=== PATIENT | male | born 1985 | race Caucasian/White ===

== ENCOUNTER 2024-02-12 02:33 | Emergency (ER) | payer OTHER, SELFPAY ==
[2024-02-12 02:40] VITALS: BP 155/92
[2024-02-12 02:59] VITALS: BMI 45.4
--- NOTE | 2024-02-12 03:03 | ED.GENMED ---
History of Present Illness
General
Chief Complaint: Chest Pain
Source: patient
Exam Limitations: none
Time Seen by Provider: 02/12/24 02:54
History of Present Illness
History of Present Illness:
See MDM
Past History
Past History
ED Past Medical History: Other (Neuropathic pain)
ED Past Surgical History: Appendectomy and Tonsilectomy
Social History
Tobacco: Non-smoker
Alcohol: Occasional
Drug: None
Living: with family
Employment: Employed
Phy Exam
Physical Exam
Physical Exam:
See MDM
Scores
Heart Score for Chest Pain Patients
STEMI patient?: No
History: Slightly or Non-Suspicious
ECG: Normal
Age: </= 45 years
Risk Factors: No Risk Factors
Troponin: </= Normal Limit
Heart Score for Chest Pain Patients: 0
Heart Score Risk: 2.5% MACE over next 6 weeks
Course
Orders/Labs/Results
Orders:
Orders
02/12/24 02:34
Electrocardiogram (*1) Urgent
Reason for Study: Chest Pain
Cardiac Monitoring- Treatment ONCE
EKG- Treatment ONCE
IV Insert/Care/Rem.- Treatment PRN
O2 Therapy [RESP] Urgent
Titrate/Wean O2 to maintain O2 sat greater than (%): 90
Special Instructions: Maintain sats >/=90%
Pulse Ox/spot Check [RESP] Urgent
Quantity: 1
Special Instructions: ON ROOM AIR
02/12/24 03:03
CR Chest - 2 Views Urgent
Comment:
Reason For Exam: chest pain
02/12/24 03:20
Complete Blood Count/With Diff Urgent
Comprehensive Metabolic Panel Urgent
Troponin I Urgent
Abnormal Lab Results
02/12/24
03:20
RBC 4.46 L 10^6/uL
(4.70-6.10)
Hct 37.2 L %
(39.0-52.0)
Abs Immat Gran (auto) 0.1 H 10^3/uL
(0-0.05)
Absolute Monos (auto) 0.8 H 10^3/uL
(0.1-0.6)
Immature Gran % 0.8 H %
(0-0.5)
02/12/24 03:20
02/12/24 03:20
Vital Signs
Initial and Last Documented VS:
Initial Vital Signs
Temp Pulse Resp BP Pulse Ox
97.7 F 60 19 155/92 99
02/12/24 02:40 02/12/24 02:40 02/12/24 02:40 02/12/24 02:40 02/12/24 02:40
Last Documented Vital Signs
Temp Pulse Resp BP Pulse Ox
97.7 F 57 17 119/70 97
02/12/24 02:40 02/12/24 04:00 02/12/24 04:00 02/12/24 04:00 02/12/24 04:00
MDM/Problems Addressed
Differential Diagnosis Includes:
HPI and MDM Narrative:
38-year-old male presenting with central chest pain. Patient states it has been ongoing for the past week or so. He does admit that is worse at nighttime. He does have a history of gastritis. He has been taking Pepcid with no relief. Symptoms
are actually better with exertion.
Screening EKG within normal limits. Given his ongoing issues, will obtain chest x-ray and troponin but discussed follow-up with GI
Physical exam
General: Well appearing and non-toxic
HEENT: protecting airway
Neck: appears supple
CV: No evidence of cyanosis. Regular rate and rhythm
Resp: No accessory muscle use. Lungs clear
Abd: Non-distended and nontender
Extremities: No deformities. No leg edema
Neuro: alert
Psych: Normal affect
Skin: Intact
Problems Addressed including Acute and Chronic Conditions affecting care:
1. Nonexertional chest
Acuity: acute
Prognosis: stable
Details: Likely in the setting of GI pain. Will obtain chest x-ray and troponin
Updates
Chest x-ray and troponin negative. Discussed follow-up with GI
Differential Diagnosis (but not limited to): Gastritis, noncardiac chest pain
Testing considered: D-dimer but he is neither tachycardic nor hypoxic
Drug therapy (if applicable): OTC meds, please see d/c instruction regarding Rx drugs
Amount and/or Complexity of Data Reviewed
Clinical info obtained from: Patient
External data reviewed: N/A
Labs I independently reviewed (but not limited to): Troponin
Radiology: X-ray independently reviewed: Chest x-ray clear
Pulse Ox: not hypoxic
EKG independently reviewed: Sinus rhythm, normal axis, no STEMI
Software Release Engineer: Sinus rhythm
Critical Care: N/A
Risk of Complication:
Social Determinants of health: Good social support
Discussed with other providers: N/A
Escalation of Care includes Admit/Obs: After being observed in the Emergency Department, pt stable for discharge.
Occasional wrong word or 'sound a like' substitutions may have occurred due to the inherent limitations of voice recognition software. Read the chart carefully and recognize, using context, where substitutions have occurred.
*Critical Care Note
Total Time (30-74mins, 75-104mins- exclusive of procedures): Not Applicable
ED Attending Note
-
Portions of this chart may have been created with voice recognition software.� Occasional wrong word or��sound alike� substitutions may have occurred due to the inherent limitations of voice recognition software.
Discharge Plan
Departure
Patient Disposition: Home (Routine Discharge)
Date of Disposition: 02/12/24
Time of Disposition: 04:08
Patient with high blood pressure during this ER visit?: No
Discharge Problem:
Chest pain, non-cardiac
Instructions: Chest Pain That Is Not Caused by the Heart (DC)
Prescriptions:
No Action
Diamox
500 mg PO BID
latanoprost
1 drp BOTH EYES DAILY
Referrals:
Radha Bauman MD [Family Provider] -
Activity Restrictions/Additional Instructions:
Please return for any worsening symptoms.
You may return at any time if you have further concerns.
Please follow up with your doctor at the first available appointment, preferably this week.
Please make an appointment to see your kiss mixer.
Thank you for choosing [facility].
Interventions
Interventions:
*Risk Screen - Suicide Last Done: 02/12/24 02:40
*General Assessment Last Done: 02/12/24 02:40
*Neglect/Abuse Screening Last Done: 02/12/24 02:40
ED- Fall Risk Assessment Last Done: 02/12/24 03:00
*ED COVID-19 Vaccine History Last Done: 02/12/24 02:40
ED- Cardiac Assessment Last Done: 02/12/24 03:00
Discharge Date and Time
Print Language: SWEDISH
[2024-02-12 03:30] VITALS: BP 109/60
[2024-02-12 03:32] LABS: % Basophils 0.5 % (0-2); % Eosinophils 2.1 % (0-6); % Immature Granulocytes 0.8 % (0-0.5); % Lymphocytes 29.4 % (20.5-51.1); % Monocytes 7.9 % (1.7-9.3); % Neutrophils 59.3 % (42.2-75.2); Absolute Basophils 0.1 10^3/uL (0-0.2); Absolute Eosinophils 0.2 10^3/uL (0-0.7); Absolute Immature Granulocytes 0.1 10^3/uL (0-0.05); Absolute Monocytes 0.8 10^3/uL (0.1-0.6); Absolute Neutrophils 6.1 10^3/uL (1.4-6.5); Hematocrit 37.2 % (39.0-52.0); Hemoglobin 13.1 g/dL (13.0-18.0); Mean Corp Hgb Conc. 35.2 g/dL (33.0-37.0); Mean Corpuscular Hgb 29.4 pg (27.0-31.0); Mean Corpuscular Volume 83.4 fL (80.0-94.0); Mean Platelet Volume 9.4 fL (7.4-10.4); Nucleated Red Blood Cells % 0 % (-); Platelet Count 351 10^3/uL (130-400); Red Blood Cell Count 4.46 10^6/uL (4.70-6.10); Red Cell Dist. Width 12.9 % (11.5-14.5); White Blood Cell Count 10.3 10^3/uL (4.8-10.8)
[2024-02-12 03:33] VITALS: BP 109/60
[2024-02-12 03:41] LABS: ALT (SGPT) 27 U/L (0-50); AST (SGOT) 25 U/L (17-59); Albumin 4.4 g/dl (3.5-5.0); Alkaline Phosphatase 112 U/L (38-126); Blood Urea Nitrogen 11 mg/dl (9-20); Calcium 9.3 mg/dl (8.4-10.2); Carbon Dioxide 22 mmol/L (22-30); Chloride 106 mmol/L (98-107); Estimated Creatinine Clearance 116 ml/min; Glucose 99 mg/dl (70-99); Sodium 140 mmol/L (135-145); Total Bilirubin 0.6 mg/dl (0.2-1.3); Total Protein 7.1 g/dl (6.3-8.2); eGFR > 60.00
[2024-02-12 03:52] LABS: Troponin I < 0.012 ng/ml
[2024-02-12 04:00] VITALS: BP 119/70
[2024-02-12 04:18] VITALS: BP 119/70
== END 2024-02-12 04:30 | disposition home or self-care (01) ==
LOC: EMR 02:33
PROVIDERS: EMERGENCY PHYSICIAN Student in an Organized Health Care Education/Training Program; FAMILY PHYSICIAN Internal Medicine
DX: R07.89 Other chest pain (principal); Z90.49 Acquired absence of other specified parts of digestive tract
CPT/HCPCS: 99283; 71046; 80053; 84484; 85025; 93005